=== PATIENT | male | born 1970 | race Caucasian/White ===

== ENCOUNTER 2024-06-07 22:26 | Emergency (ER) | payer SELFPAY ==
[2024-06-07] MEDS: Haloperidol Lactate 5 MG/ML SDV IM PRN (22:40)
[2024-06-07] MEDS: Dexamethasone 4 MG/ML SDV IVPUSH ONE (22:40)
[2024-06-07] MEDS: Orphenadrine 60 MG/2 ML Inj IM ONE (22:41)
[2024-06-07] MEDS: Acetaminophen 500 MG Tab PO ONE (22:41)
[2024-06-07] MEDS ORDERED: Morphine 4 MG/ML Syringe IVPUSH PRN (23:05)
[2024-06-07 23:09] LABS: HEMATOCRIT 49.9 % (42.0-52.0); HEMOGLOBIN 16.9 g/dL (14.0-18.0); MEAN CORPUSCULAR HEMOGLOBIN 30.3 pg (28.0-32.0); MEAN CORPUSCULAR HGB CONC 33.9 g/dL (32.0-36.0); MEAN CORPUSCULAR VOLUME 89.4 fL (83.0-99.0); MEAN PLATELET VOLUME 11.2 fL (9.4-12.4); PLATELET COUNT,PLT 187 K/uL (150-400); RED BLOOD CELL COUNT 5.58 M/uL (4.52-5.90); WHITE BLOOD CELL COUNT,WBC 15.68 K/uL (3.9-11.3)
[2024-06-07 23:21] LABS: INR 1.01 (0.86-1.11)
[2024-06-07 23:40] LABS: A/G RATIO 1.2 (0.9-1.6); ALBUMIN 3.8 g/dL (3.4-5.0); BILIRUBIN TOTAL 0.8 mg/dL (0.2-1.0); CALCIUM 8.7 mg/dL (8.5-10.1); CARBON DIOXIDE,CO2 26.1 mmol/L (21.0-32.0); CREATININE 1.1 mg/dL (0.8-1.3); EST CRCL DRUG DOSING (CG) 82.3 mL/min; POTASSIUM,K 3.5 mmol/L (3.5-5.1); PROTEIN TOTAL,TP 6.9 g/dL (6.4-8.2)
[2024-06-08 00:11] LABS: EOSINOPHILS ABSOLUTE MAN 0.31 K/uL (0.00-0.45); EOSINOPHILS PERCENT MAN 2 % (0-6); LYMPHOCYTES ABSOLUTE MAN 0.94 K/uL (1.00-4.80); LYMPHOCYTES PERCENT MAN 6 % (24-44); MONOCYTES ABSOLUTE MAN 1.72 K/uL (0.00-0.80); MONOCYTES PERCENT MAN 11 % (0-8); SEG NEUTROPHILS PERCENT MAN 81 % (41-71)
== END 2024-06-08 01:09 | disposition home or self-care (01) ==
LOC: MW.ED 22:26
DX: M16.12 Unilateral primary osteoarthritis, left hip (principal); M47.816 Spondylosis without myelopathy or radiculopathy, lumbar region; M62.838 Other muscle spasm; R10.32 Left lower quadrant pain; Z94.0 Kidney transplant status; Z79.899 Other long term (current) drug therapy
CPT/HCPCS: 36415; 72131; 72192; 80053; 80307; 85025; 85610; 96372; 96374; 99284; A9270; J1100; J1630; J2360